=== PATIENT | female | born 1980 | race Two or more races ===

== ENCOUNTER 2019-10-08 22:19 | Observation (INO) | payer BC, OTHER ==
[~2019-10-08] VITALS: Ht 160 cm; Wt 95.3 kg
[2019-10-08] MEDS ORDERED: PREN-96 PO (22:53)
[2019-10-08] MEDS: TERBUTALINE SULFATE 1 MG/ML 1ML VIAL SC SCH ×2 (23:26→23:50)
== END 2019-10-09 00:32 | disposition home or self-care (01) | DRG 832 ==
LOC: LDRP 22:19
PROVIDERS: ADMIT Specialist; ATTEND Specialist
DX: O60.03 Preterm labor without delivery, third trimester (principal); O23.43 Unspecified infection of urinary tract in pregnancy, third trimester; Z3A.30 30 weeks gestation of pregnancy
CPT/HCPCS: 59025; 81002; 94760; 96372; G0378; J3105

== ENCOUNTER 2019-10-14 18:21 | Inpatient (IN) | payer BC, OTHER ==
[~2019-10-14] VITALS: Ht 160 cm; Wt 95.3 kg
[~2019-10-14 18:21] MED LIST: PREN-96 PO
[2019-10-14] MEDS ORDERED: NITR-87 PO (19:18)
[2019-10-14] MEDS ORDERED: BETAMETHASONE ACET (6MG/ML) 5ML VIAL IM SCH (19:45)
[2019-10-14] MEDS ORDERED: SODIUM CHLORIDE 0.9% 1,000 ML IV ONE (20:30)
[2019-10-14] MEDS ORDERED: MAGNESIUM SULFATE 40MG/ML 0 ML IV ONE (20:32)
[2019-10-14] MEDS ORDERED: MAGNESIUM SULFATE 100 ML IV ONE ×2 (20:32→20:48)
[2019-10-14] MEDS ORDERED: MAGNESIUM SULFATE 40MG/ML 1,000 ML IV ONE (20:36)
[2019-10-14] MEDS ORDERED: MAGNESIUM SULFATE 40MG/ML 1,000 ML IV SCH (20:48)
[2019-10-14] MEDS ORDERED: LACTATED RINGER'S 1,000 ML IV SCH (20:48)
[2019-10-14 21:02] LABS: Basophils # (auto) 0 10 ^3/uL (0-0.2); Basophils % (auto) 0.4 % (0.0-2.0); Eosinophils # (auto) 0.1 10 ^3/uL (0-0.8); Eosinophils % (auto) 0.7 % (0.0-7.0); Hematocrit 36.9 % (36.0-46.0); Hemoglobin 12.6 g/dL (12.2-16.2); Lymphocytes # (auto) 1.4 10 ^3/uL (0.4-5.4); Lymphocytes % (auto) 12.4 % (10.0-50.0); Mean Corpuscular Hemoglobin 31.2 pg (28.0-32.0); Mean Corpuscular Hgb Conc. 34.2 g/dL (32.0-36.0); Mean Corpuscular Volume 91.4 fL (80.0-100.0); Monocytes # (auto) 0.7 10 ^3/uL (0-1.3); Monocytes % (auto) 6.3 % (0.0-12.0); Neutrophils # (auto) 8.7 10 ^3/uL (1.6-8.6); Neutrophils % (auto) 80.2 % (37.0-80.0); Nucleated Red Blood Cells % 0.1 %; Platelet Count (auto) 182 10^3/uL (140-450); Red Blood Cells 4.04 10^6/uL (4.0-5.20); Red Cell Distribution Width 13.7 % (11.8-14.3); White Blood Cell 10.9 10^3/uL (4.4-10.8)
[2019-10-14 21:11] LABS: Urine Bacteria FEW /hpf (None Seen); Urine Blood 1+ /uL (Negative); Urine Mucus FEW (None Seen); Urine Specific Gravity 1.022 (1.001-1.035); Urine WBC 2 /hpf (0 - 5)
[2019-10-14 21:17] LABS: Albumin 2.6 g/dL (3.4-5.0); Calcium 8.2 mg/dL (8.5-10.1); Potassium 3.5 mmol/L (3.5-5.1)
[2019-10-14 21:20] LABS: BUN/Creatinine Ratio 12.5; Total Protein 6.6 g/dL (6.4-8.2)
[2019-10-14 21:29] LABS: INR 0.97 (0.9-1.15); Partial Thromboplastin Time 28.3 sec (23.64-32.05)
[2019-10-14] MEDS ORDERED: ceFAZolin 1GM/50ML 50 ML IV SCH (22:00)
--- NOTE | 2019-10-18 10:19 | NUR ---
PHARMACY TECHNICIAN TRAINEE WEEKEND Regarding social service consult for transfer to high level care. Did not received a page or call regarding this order.
== END 2019-10-15 00:10 | disposition short-term general hospital (02) | DRG 833 ==
LOC: LDRP 18:21 → OBSVTOIN 18:21
PROVIDERS: ADMIT Specialist; ATTEND Specialist
DX: O45.93 Premature separation of placenta, unspecified, third trimester (principal); O34.219 Maternal care for unspecified type scar from previous cesarean delivery; V89.2XXA Person injured in unspecified motor-vehicle accident, traffic, initial encounter; Y92.410 Unspecified street and highway as the place of occurrence of the external cause; Z3A.31 31 weeks gestation of pregnancy; Z80.3 Family history of malignant neoplasm of breast; Z83.3 Family history of diabetes mellitus; Z87.440 Personal history of urinary (tract) infections; Z90.49 Acquired absence of other specified parts of digestive tract
CPT/HCPCS: 36415; 59025; 76805; 76815; 80053; 81001; 81002; 84112; 85025; 85610; 85730; 86592; 86850; 86900; 86901; 94760; 96360; 96361; 96365; 96366; 96372; G0378; J0690

== ENCOUNTER 2021-03-25 13:56 | Emergency (ER) | payer BC ==
[~2021-03-25] VITALS: Ht 160 cm; Wt 79.4 kg
[~2021-03-25 13:56] MED LIST changes: +NITR-87 PO
[2021-03-25 13:58] VITALS: BP 119/77
== END 2021-03-25 16:26 | disposition left against medical advice (07) ==
LOC: ER 13:56
DX: R51.9 Headache, unspecified (principal); Z53.21 Procedure and treatment not carried out due to patient leaving prior to being seen by health care provider; W01.0XXA Fall on same level from slipping, tripping and stumbling without subsequent striking against object, initial encounter; Y93.89 Activity, other specified; Y92.89 Other specified places as the place of occurrence of the external cause; Y99.8 Other external cause status